=== PATIENT | female | born 1970 | race Caucasian/White ===

== ENCOUNTER 2017-02-11 10:53 | Emergency (ER) | payer SELFPAY ==
[~2017-02-11] VITALS: Ht 160 cm; Wt 91.0 kg
[~2017-02-11 10:53] MED LIST: LISI-126 PO; METO-64 PO; QUET50TA7 PO; TOPI100T27 PO; ZOLP-109 PO
--- OUTSIDE RECORDS SUMMARY | 2017-02-11 10:57 | XMS REPORT | CCD ---
Author Author SHANNON LAIRD Organization Unknown Address [address], [place] [id number] Phone 0 Care Team Providers Care Lead Java J2Ee Developer Name Role Phone EMILEE ASHTON Attending Physician [phone] EMILEE ASHTNO Primary Surgeon [phone] Vital Signs Vital Sign Value Unit Date/Time Recent/Initial? Weight Measured 180 lbs 12/22/2016 15:33 Initial VS Height 63 in 2016 15:33 Initial VS BMI (Body Mass Index) 31.89 kg/m^2 12/22/2016 15:33 Initial VS BSA (Body Surface Area) 1.91 m^2 12/22/2016 15:33 Initial VS Allergies Allergy Code Allergy Type Reaction Status ERYTHROMYCIN 4053 Drug allergy Active Procedures Unknown or Not Available. History of Immunizations Immunization Code Date influenza, unspecified formulation 88 Pneumococcal Conjugate, unspecified formulation 152 05/03/2013 Problems Unknown or Not Available. Results Unknown or Not Available. Active Medications Medication Code Dose Units Frequency Route Modification Start Date/Time Ibuprofen 400MG Oral Tablet [id number] 400 MILLIGRAMS PRN Q6H BY MOUTH 07/14/2015 11:34 Prescription Detail TAKE 400 MILLIGRAMS BY MOUTH PRN Q6H Propranolol ER 80MG Oral Capsule, Extended Release [id number] 80 MILLIGRAMS TWICE A DAY ORAL 07/14/2015 11:33 Prescription Detail 80 MILLIGRAMS ORAL TWICE A DAY QUEtiapine Fumarate 200MG Oral Tablet [id number] 200 MILLIGRAMS TWICE A DAY ORAL 07/14/2015 11:33 Prescription Detail 200 MILLIGRAMS ORAL TWICE A DAY Requip 1MG Oral Tablet [id number] 1 MILLIGRAMS AT BEDTIME ORAL 07/14/2015 11:33 Prescription Detail 1 MILLIGRAMS ORAL AT BEDTIME Medications Administered During Visit Unknown or Not Available. Encounters Unknown or Not Available. Social History Smoking Status Code Start Date End Date Never smoker [id number] Patient Decision Aids Unknown or Not Available. Discharge Instructions You were admitted to [facility] on 12/22/2016 15:22 You were discharged from [facility] on 12/22/2016 16:33 Should you have any questions prior to discharge, please contact a member of your healthcare team. If you have left the hospital and have any questions, please contact your primary care physician. Chief Complaint and Reason For Visit Chief Complaint Date of Onset VOMITING Function Status Unknown or Not Available. Plan of Care Unknown or Not Available. Referral/Transition of Care Unknown or Not Available.
--- OUTSIDE RECORDS SUMMARY | 2017-02-11 10:57 | XMS REPORT | CCD ---
Author Author SHANNON LAIRD Organization Unknown Address [address], [place] [id number] Phone 0 Care Team Providers Care Open Soaper Tender Name Role Phone NEW, Andrew Attending Physician 0 NEW, A Primary Surgeon 0 Vital Signs Vital Sign Value Unit Date/Time Recent/Initial? Weight Measured 180 lbs 12/19/2015 01:19 Initial VS Height 63 in 2015 01:19 Initial VS BMI (Body Mass Index) 31.89 kg/m^2 12/19/2015 01:19 Initial VS BSA (Body Surface Area) 1.91 m^2 12/19/2015 01:19 Initial VS Allergies Allergy Code Allergy Type Reaction Status ERYTHROMYCIN 4053 Drug allergy Active Procedures Unknown or Not Available. History of Immunizations Immunization Code Date influenza, unspecified formulation 88 Pneumococcal Conjugate, unspecified formulation 152 05/03/2013 Problems Unknown or Not Available. Results Unknown or Not Available. Active Medications Medication Code Dose Units Frequency Route Modification Start Date/Time Ibuprofen 400MG Oral Tablet [id number] 400 MILLIGRAMS PRN Q6H BY MOUTH 07/14/2015 11:34 Prescription Detail TAKE 400 MILLIGRAMS BY MOUTH PRN Q6H Propranolol ER 80MG Oral Capsule, Extended Release [id number] 80 MILLIGRAMS TWICE A DAY ORAL 07/14/2015 11:33 Prescription Detail 80 MILLIGRAMS ORAL TWICE A DAY QUEtiapine Fumarate 200MG Oral Tablet [id number] 200 MILLIGRAMS TWICE A DAY ORAL 07/14/2015 11:33 Prescription Detail 200 MILLIGRAMS ORAL TWICE A DAY Remeron 15MG Oral Tablet [id number] 15 MILLIGRAMS AT BEDTIME ORAL 07/14/2015 11:33 Prescription Detail 15 MILLIGRAMS ORAL AT BEDTIME Requip 1MG Oral Tablet [id number] 1 MILLIGRAMS AT BEDTIME ORAL 07/14/2015 11:33 Prescription Detail 1 MILLIGRAMS ORAL AT BEDTIME Xanax 1MG Oral Tablet [id number] 1 MILLIGRAMS THREE TIMES DAILY ORAL 07/14/2015 11:33 Prescription Detail 1 MILLIGRAMS ORAL THREE TIMES DAILY Medications Administered During Visit Unknown or Not Available. Encounters Encounter Diagnosis Diagnosis Code Start Date Lumbago with sciatica, right side M5441 12/19/2015 Social History Smoking Status Code Start Date End Date Never smoker [id number] Patient Decision Aids Unknown or Not Available. Discharge Instructions You were admitted to [facility] on 12/19/2015 with a principal diagnosis of Lumbago with sciatica, right side. You were discharged from [facility] on 12/19/2015. Should you have any questions prior to discharge, please contact a member of your healthcare team. If you have left the hospital and have any questions, please contact your primary care physician. Chief Complaint and Reason For Visit Chief Complaint Date of Onset LEFT LEG PAIN 12/18/2015 Function Status Unknown or Not Available. Plan of Care Unknown or Not Available. Referral/Transition of Care Unknown or Not Available.
--- OUTSIDE RECORDS SUMMARY | 2017-02-11 10:57 | XMS REPORT | Continuity of Care Document ---
Author Author [facility] Address Unknown Phone Unavailable Allergies Medications Problems Procedures Results Encounters ACCT No. Visit Date/Time Discharge Status Pt. Type Provider Facility Loc./Unit Complaint [id number] 01/28/2014 07:25:00 2013 23:59:59 [facility] Outpatient [id number] 09/25/2013 11:05:00 2012 23:59:59 CLS Outpatient
--- OUTSIDE RECORDS SUMMARY | 2017-02-11 10:57 | XMS REPORT | CCD ---
Author Author SHANNON LAIRD Organization Unknown Address [address] [place], [place] [address] Phone 0 Care Team Providers Care Robotics Testing Technician Name Role Phone MAUDE GONZALEZ Attending Physician 0 Vital Signs Unknown or Not Available. Allergies Allergy Code Allergy Type Reaction Status ERYTHROMYCIN 4053 Drug allergy Active Procedures Unknown or Not Available. History of Immunizations Immunization Code Date influenza, unspecified formulation 88 Pneumococcal Conjugate, unspecified formulation 152 05/03/2013 Problems Unknown or Not Available. Results BASIC METABOLIC - Collect Date/Time: 08/11/2015 08:00 Test Name Code Test Result Test Units Test Ref Range GLUCOSE 115 mg/dL L=70 H=110 BUN 9 mg/dL L=7 H=18 CREATININE 0.60 mg/ dL L=0.60 H=1.30 AGE 44 YEARS GFR 115.4 SODIUM 140 mmol/L L=136 H=145 POTASSIUM 3.4 mmol/ L L=3.5 H=5.1 CHLORIDE 103 mmol/L L=98 H=107 CO2 27 mmol/L L=21 H=32 CALCIUM 9.5 mg/dL L=8.5 H=10.1 CBC W/ DIFF - Collect Date/Time: 08/11/2015 08:00 Test Name Code Test Result Test Units Test Ref Range WBC 7.5 x10^3 L=4.8 H=10.8 RBC 4.58 x10^6 L=4.20 H=5.40 HEMOGLOBIN 12.9 g/ dL L=12.0 H=16.0 HEMATOCRIT 39.3 % L=37.0 H=47.0 MCV 86 fL L=80 H=100 MCH 28.2 pg L=27.0 H=33.0 MCHC 32.9 g/dL L=33.0 H=37.0 RDW 15.4 % L=11.5 H=14.5 PLATELETS 269 x10^3 L=150 H=450 MPV 7.5 fL L=7.8 H=11.0 NEUTROPHILS 68.2 % L=40.0 H=80.0 LYMPHOCYTES 24.9 % L=20.0 H=45.0 MONOCYTES 4.3 % L=0.0 H=10.0 EOSINOPHILS 2.6 % L=0.0 H=5.0 BASOPHILS 0.0 % L=0.0 H=2.0 REFLEX MAN DIFF NO N /A UA AUTO W/ MICRO - Collect Date/Time: 08/11/2015 08:04 Test Name Code Test Result Test Units Test Ref Range COLOR Yellow N/A NORMAL: Yellow APPEARANCE Clear N/ A NORMAL: Clear GLUCOSE Negative N/ A NORMAL: Negative BILIRUBIN Negative N /A NORMAL: Negative KETONE Negative N/A NORMAL: Negative SPEC GRAVITY 1.015 N /A NORMAL: 1.005-1.030 BLOOD Small N/A NORMAL: Negative PROTEIN Trace N/A NORMAL: Negative PH 5.5 N/A NORMAL: 5.0-8.0 UROBILINOGEN 0.2 N/ A NORMAL: Negative NITRITE Negative N/ A NORMAL: Negative LEUKOCYTES Negative N/A NORMAL: Negative MICRO RBC 0-2 N/A NORMAL: 0-2 MICRO WBC 0-2 N/A NORMAL: 0-2 BACTERIA Trace N/A NORMAL: None-Trace EPI CELLS 0-5 N/A NORMAL: 0-15 MUCUS Large N/A NORMAL: None-Small AMORPHOUS None Seen N/A NORMAL: None Seen YEAST Trace N/A NORMAL: None Seen CRYSTALS None Seen N /A NORMAL: None Seen CAST None Seen N/A NORMAL: None Seen URINE CULTURE? NO N/ A Active Medications Medication Code Dose Units Frequency Route Modification Start Date/Time Ibuprofen 400MG Oral Tablet [id number] 400 MILLIGRAMS PRN Q6H BY MOUTH 07/14/2015 11:34 Prescription Detail TAKE 400 MILLIGRAMS BY MOUTH PRN Q6H Propranolol ER 80MG Oral Capsule, Extended Release [id number] 80 MILLIGRAMS TWICE A DAY ORAL 07/14/2015 11:33 Prescription Detail 80 MILLIGRAMS ORAL TWICE A DAY QUEtiapine Fumarate 200MG Oral Tablet [id number] 200 MILLIGRAMS TWICE A DAY ORAL 07/14/2015 11:33 Prescription Detail 200 MILLIGRAMS ORAL TWICE A DAY Remeron 15MG Oral Tablet [id number] 15 MILLIGRAMS AT BEDTIME ORAL 07/14/2015 11:33 Prescription Detail 15 MILLIGRAMS ORAL AT BEDTIME Requip 1MG Oral Tablet [id number] 1 MILLIGRAMS AT BEDTIME ORAL 07/14/2015 11:33 Prescription Detail 1 MILLIGRAMS ORAL AT BEDTIME Xanax 1MG Oral Tablet [id number] 1 MILLIGRAMS THREE TIMES DAILY ORAL 07/14/2015 11:33 Prescription Detail 1 MILLIGRAMS ORAL THREE TIMES DAILY Medications Administered During Visit Unknown or Not Available. Encounters Encounter Diagnosis Diagnosis Code Start Date Sepsis due to unspecified staphylococcus A412 08/11/2015 Social History Smoking Status Code Start Date End Date Never smoker [id number] Patient Decision Aids Unknown or Not Available. Discharge Instructions You were admitted to [facility] on 08/11/2015 with a principal diagnosis of Sepsis due to unspecified staphylococcus. You were discharged from [facility] on 08/11/2015. Should you have any questions prior to discharge, please contact a member of your healthcare team. If you have left the hospital and have any questions, please contact your primary care physician. Chief Complaint and Reason For Visit Unknown or Not Available. Function Status Unknown or Not Available. Plan of Care Unknown or Not Available. Referral/Transition of Care Unknown or Not Available.
--- OUTSIDE RECORDS SUMMARY | 2017-02-11 10:57 | XMS REPORT | CCD ---
Author Author SHANNON LAIRD Organization Unknown Address [address] [place], [place] [id number] Phone 0 Care Team Providers Care Container Washer Name Role Phone MAUDE GONZALEZ Attending Physician 0 Vital Signs Unknown or Not Available. Allergies Allergy Code Allergy Type Reaction Status ERYTHROMYCIN 4053 Drug allergy Active Procedures Unknown or Not Available. History of Immunizations Immunization Code Date influenza, unspecified formulation 88 Pneumococcal Conjugate, unspecified formulation 152 05/03/2013 Problems Unknown or Not Available. Results COMP METABOLIC - Collect Date/Time: 07/18/2015 13:47 Test Name Code Test Result Test Units Test Ref Range GLUCOSE 100 mg/dL L=70 H=110 BUN 8 mg/dL L=7 H=18 CREATININE 0.60 mg/ dL L=0.60 H=1.30 AGE 44 YEARS GFR 115.4 SODIUM 138 mmol/L L=136 H=145 POTASSIUM 3.9 mmol/ L L=3.5 H=5.1 CHLORIDE 101 mmol/L L=98 H=107 CO2 26 mmol/L L=21 H=32 CALCIUM 9.6 mg/dL L=8.5 H=10.1 AST 16 U/L L=15 H=37 ALT 40 U/L L=12 H=78 ALKALINE PHOS 134 U/ L L=50 H=136 TOTAL PROTEIN 7.9 g/ dL L=6.4 H=8.2 ALBUMIN 3.5 g/dL L=3.4 H=5.0 TOTAL BILI 0.30 mg/ dL L=0.00 H=1.00 CBC W/ DIFF - Collect Date/Time: 07/18/2015 13:47 Test Name Code Test Result Test Units Test Ref Range WBC 8.3 x10^3 L=4.8 H=10.8 RBC 4.46 x10^6 L=4.20 H=5.40 HEMOGLOBIN 12.4 g/ dL L=12.0 H=16.0 HEMATOCRIT 37.6 % L=37.0 H=47.0 MCV 84 fL L=80 H=100 MCH 27.8 pg L=27.0 H=33.0 MCHC 33.0 g/dL L=33.0 H=37.0 RDW 14.5 % L=11.5 H=14.5 PLATELETS 316 x10^3 L=150 H=450 MPV 8.0 fL L=7.8 H=11.0 NEUTROPHILS 64.1 % L=40.0 H=80.0 LYMPHOCYTES 25.6 % L=20.0 H=45.0 MONOCYTES 6.4 % L=0.0 H=10.0 EOSINOPHILS 3.6 % L=0.0 H=5.0 BASOPHILS 0.3 % L=0.0 H=2.0 REFLEX MAN DIFF NO N /A UA AUTO W/ MICRO - Collect Date/Time: 07/18/2015 13:47 Test Name Code Test Result Test Units Test Ref Range COLOR Yellow N/A NORMAL: Yellow APPEARANCE Clear N/ A NORMAL: Clear GLUCOSE Negative N/ A NORMAL: Negative BILIRUBIN Negative N /A NORMAL: Negative KETONE Negative N/A NORMAL: Negative SPEC GRAVITY 1.015 N /A NORMAL: 1.005-1.030 BLOOD Small N/A NORMAL: Negative PROTEIN Negative N/ A NORMAL: Negative PH 6.0 N/A NORMAL: 5.0-8.0 UROBILINOGEN 0.2 N/ A NORMAL: Negative NITRITE Negative N/ A NORMAL: Negative LEUKOCYTES Negative N/A NORMAL: Negative MICRO RBC 0-2 N/A NORMAL: 0-2 MICRO WBC 0-2 N/A NORMAL: 0-2 BACTERIA Trace N/A NORMAL: None-Trace EPI CELLS 0-5 N/A NORMAL: 0-15 MUCUS Small N/A NORMAL: None-Small AMORPHOUS None Seen N/A NORMAL: None Seen YEAST None Seen N/A NORMAL: None Seen CRYSTALS None Seen N /A NORMAL: None Seen CAST None Seen N/A NORMAL: None Seen URINE CULTURE? NO N/ A Active Medications Medication Code Dose Units Frequency Route Modification Start Date/Time Ibuprofen 400MG Oral Tablet [id number] 400 MILLIGRAMS PRN Q6H BY MOUTH 07/14/2015 11:34 Prescription Detail TAKE 400 MILLIGRAMS BY MOUTH PRN Q6H Propranolol ER 80MG Oral Capsule, Extended Release [id number] 80 MILLIGRAMS TWICE A DAY ORAL 07/14/2015 11:33 Prescription Detail 80 MILLIGRAMS ORAL TWICE A DAY QUEtiapine Fumarate 200MG Oral Tablet [id number] 200 MILLIGRAMS TWICE A DAY ORAL 07/14/2015 11:33 Prescription Detail 200 MILLIGRAMS ORAL TWICE A DAY Remeron 15MG Oral Tablet [id number] 15 MILLIGRAMS AT BEDTIME ORAL 07/14/2015 11:33 Prescription Detail 15 MILLIGRAMS ORAL AT BEDTIME Requip 1MG Oral Tablet [id number] 1 MILLIGRAMS AT BEDTIME ORAL 07/14/2015 11:33 Prescription Detail 1 MILLIGRAMS ORAL AT BEDTIME Xanax 1MG Oral Tablet [id number] 1 MILLIGRAMS THREE TIMES DAILY ORAL 07/14/2015 11:33 Prescription Detail 1 MILLIGRAMS ORAL THREE TIMES DAILY Medications Administered During Visit Unknown or Not Available. Encounters Encounter Diagnosis Diagnosis Code Start Date URIN TRACT INFECTION NOS 5990 07/18/2015 Social History Smoking Status Code Start Date End Date Never smoker [id number] Patient Decision Aids Unknown or Not Available. Discharge Instructions You were admitted to [facility] on 07/18/2015 with a principal diagnosis of URIN TRACT INFECTION NOS. You were discharged from [facility] on 07/18/2015. Should you have any questions prior to [...]
--- OUTSIDE RECORDS SUMMARY | 2017-02-11 10:57 | XMS REPORT | CCD ---
Author Author SHANNON LAIRD Organization Unknown Address [address], [place] [address] Phone 0 Care Team Providers Care Opener Tender Name Role Phone NEW, A Attending Physician 0 NEW, A Primary Surgeon 0 Vital Signs Unknown or Not Available. Allergies Allergy Code Allergy Type Reaction Status ERYTHROMYCIN 4053 Drug allergy Active Procedures Unknown or Not Available. History of Immunizations Immunization Code Date influenza, unspecified formulation 88 Pneumococcal Conjugate, unspecified formulation 152 05/03/2013 Problems Unknown or Not Available. Results UA AUTO W/ MICRO - Collect Date/Time: 12/24/2015 10:10 Test Name Code Test Result Test Units Test Ref Range COLOR Yellow N/A NORMAL: Yellow APPEARANCE Clear N/ A NORMAL: Clear GLUCOSE Negative N/ A NORMAL: Negative BILIRUBIN Negative N /A NORMAL: Negative KETONE Negative N/A NORMAL: Negative SPEC GRAVITY <=1.005 N/A NORMAL: 1.005-1.030 BLOOD Small N/A NORMAL: Negative PROTEIN Negative N/ A NORMAL: Negative PH 6.0 N/A NORMAL: 5.0-8.0 UROBILINOGEN 0.2 N/ A NORMAL: Negative NITRITE Negative N/ A NORMAL: Negative LEUKOCYTES Negative N/A NORMAL: Negative MICRO RBC 0-2 N/A NORMAL: 0-2 MICRO WBC 0-2 N/A NORMAL: 0-2 BACTERIA Trace N/A NORMAL: None-Trace EPI CELLS 0-5 N/A NORMAL: 0-15 MUCUS None Seen N/A NORMAL: None-Small AMORPHOUS None Seen N/A NORMAL: None Seen YEAST None Seen N/A NORMAL: None Seen CRYSTALS None Seen N /A NORMAL: None Seen CAST None Seen N/A NORMAL: None Seen URINE CULTURE? NO N/ A Active Medications Unknown or Not Available. Medications Administered During Visit Unknown or Not Available. Encounters Encounter Diagnosis Diagnosis Code Start Date Urinary tract infection, site not specified N390 12/24/2015 Social History Smoking Status Code Start Date End Date Never smoker [id number] Patient Decision Aids Unknown or Not Available. Discharge Instructions You were admitted to [facility] on 12/24/2015 09:17 with a principal diagnosis of Urinary tract infection, site not specified You had the following tests done: UA AUTO W/ MICRO You were discharged from [facility] on 12/24/2015 10:45 Should you have any questions prior to discharge, please contact a member of your healthcare team. If you have left the hospital and have any questions, please contact your primary care physician. Chief Complaint and Reason For Visit Chief Complaint Date of Onset ABD/BACK PAIN Function Status Unknown or Not Available. Plan of Care Unknown or Not Available. Referral/Transition of Care Unknown or Not Available.
--- OUTSIDE RECORDS SUMMARY | 2017-02-11 10:58 | XMS REPORT | CCD ---
Author Author SHANNON LAIRD Organization Unknown Address [address] [place], [place] [id number] Phone 0 Care Team Providers Care Outsole Handler Name Role Phone MAUDE GONZALEZ Attending Physician 0 MAUDE GONZALEZ Primary Surgeon 0 Vital Signs Unknown or [...] Modification Start Date/Time Ibuprofen 400MG Oral Tablet [id number] 400 MILLIGRAMS PRN Q6H BY MOUTH 07/14/2015 11:34 Prescription Detail TAKE 400 MILLIGRAMS BY MOUTH PRN Q6H Propranolol ER 80MG Oral Capsule, Extended Release [id number] 80 MILLIGRAMS TWICE A DAY ORAL 07/14/2015 11:33 Prescription Detail 80 MILLIGRAMS ORAL TWICE A DAY QUEtiapine Fumarate 200MG Oral Tablet [id number] 200 MILLIGRAMS TWICE A DAY ORAL 07/14/2015 11:33 Prescription Detail 200 MILLIGRAMS ORAL TWICE A DAY Remeron 15MG Oral Tablet [id number] 15 MILLIGRAMS AT BEDTIME ORAL 07/14/2015 11:33 Prescription Detail 15 MILLIGRAMS ORAL AT BEDTIME Requip 1MG Oral Tablet [id number] 1 MILLIGRAMS AT BEDTIME ORAL 07/14/2015 11:33 Prescription Detail 1 MILLIGRAMS ORAL AT BEDTIME Xanax 1MG Oral Tablet [id number] 1 MILLIGRAMS THREE TIMES DAILY ORAL 07/14/2015 11:33 Prescription Detail 1 MILLIGRAMS ORAL THREE TIMES DAILY Medications Administered During Visit Unknown or Not Available. Encounters Encounter Diagnosis Diagnosis Code Start Date Sprain of medial collateral ligament of right knee, initial encounter [id number] 11/23/2015 Social History Smoking Status Code Start Date End Date Never smoker [id number] Patient Decision Aids Unknown or Not Available. Discharge Instructions You were admitted to [facility] on 11/23/2015 with a principal diagnosis of Sprain of medial collateral ligament of right knee, initial encounter. You were discharged from [facility] on 11/23/2015. Should you have any questions prior to discharge, please contact a member of your healthcare team. If you have left the hospital and have any questions, please contact your primary care physician. Chief Complaint and Reason For Visit Chief Complaint Date of Onset FALL, BILAT KNEE PAIN 11/23/2015 Function Status Unknown or Not Available. Plan of Care Unknown or Not Available. Referral/Transition of Care Unknown or Not Available.
--- OUTSIDE RECORDS SUMMARY | 2017-02-11 10:58 | XMS REPORT | CCD ---
Author Author SHANNON LAIRD Organization Unknown Address [address] [place], [place] [address] Phone 0 Care Team Providers Care Loom Changeover Operator Name Role Phone MAUDE GONZALEZ Attending Physician 0 Vital Signs Unknown or Not Available. Allergies Allergy Code Allergy Type Reaction Status ERYTHROMYCIN 4053 Drug allergy Active Procedures Unknown or Not Available. History of Immunizations Immunization Code Date influenza, unspecified formulation 88 Pneumococcal Conjugate, unspecified formulation 152 05/03/2013 Problems Unknown or Not Available. Results BASIC METABOLIC - Collect Date/Time: 08/12/2015 13:49 Test Name Code Test Result Test Units Test Ref Range GLUCOSE 124 mg/dL L=70 H=110 BUN 9 mg/dL L=7 H=18 CREATININE 0.60 mg/ dL L=0.60 H=1.30 AGE 44 YEARS GFR 115.4 SODIUM 141 mmol/L L=136 H=145 POTASSIUM 3.3 mmol/ L L=3.5 H=5.1 CHLORIDE 104 mmol/L L=98 H=107 CO2 31 mmol/L L=21 H=32 CALCIUM 9.5 mg/dL L=8.5 H=10.1 CBC W/ DIFF - Collect Date/Time: 08/12/2015 13:49 Test Name Code Test Result Test Units Test Ref Range WBC 10.0 x10^3 L=4.8 H=10.8 RBC 4.31 x10^6 L=4.20 H=5.40 HEMOGLOBIN 12.5 g/ dL L=12.0 H=16.0 HEMATOCRIT 37.1 % L=37.0 H=47.0 MCV 86 fL L=80 H=100 MCH 29.0 pg L=27.0 H=33.0 MCHC 33.7 g/dL L=33.0 H=37.0 RDW 15.2 % L=11.5 H=14.5 PLATELETS 279 x10^3 L=150 H=450 MPV 7.8 fL L=7.8 H=11.0 NEUTROPHILS 68.5 % L=40.0 H=80.0 LYMPHOCYTES 22.0 % L=20.0 H=45.0 MONOCYTES 5.0 % L=0.0 H=10.0 EOSINOPHILS 2.9 % L=0.0 H=5.0 BASOPHILS 1.6 % L=0.0 H=2.0 REFLEX MAN DIFF NO N /A Active Medications Medication Code Dose Units Frequency Route Modification Start Date/Time Ibuprofen 400MG Oral Tablet [id number] 400 MILLIGRAMS PRN Q6H BY MOUTH 07/14/2015 11:34 Prescription Detail TAKE 400 MILLIGRAMS BY MOUTH PRN Q6H Propranolol ER 80MG Oral Capsule, Extended Release [id number] 80 MILLIGRAMS TWICE A DAY ORAL 07/14/2015 11:33 Prescription Detail 80 MILLIGRAMS ORAL TWICE A DAY QUEtiapine Fumarate 200MG Oral Tablet [id number] 200 MILLIGRAMS TWICE A DAY ORAL 07/14/2015 11:33 Prescription Detail 200 MILLIGRAMS ORAL TWICE A DAY Remeron 15MG Oral Tablet [id number] 15 MILLIGRAMS AT BEDTIME ORAL 07/14/2015 11:33 Prescription Detail 15 MILLIGRAMS ORAL AT BEDTIME Requip 1MG Oral Tablet [id number] 1 MILLIGRAMS AT BEDTIME ORAL 07/14/2015 11:33 Prescription Detail 1 MILLIGRAMS ORAL AT BEDTIME Xanax 1MG Oral Tablet [id number] 1 MILLIGRAMS THREE TIMES DAILY ORAL 07/14/2015 11:33 Prescription Detail 1 MILLIGRAMS ORAL THREE TIMES DAILY Medications Administered During Visit Unknown or Not Available. Encounters Encounter Diagnosis Diagnosis Code Start Date Sepsis due to unspecified staphylococcus A412 08/12/2015 Social History Smoking Status Code Start Date End Date Never smoker [id number] Patient Decision Aids Unknown or Not Available. Discharge Instructions You were admitted to [facility] on 08/12/2015 with a principal diagnosis of Sepsis due to unspecified staphylococcus. You were discharged from [facility] on 08/12/2015. Should you have any questions prior to [...]
--- OUTSIDE RECORDS SUMMARY | 2017-02-11 10:58 | XMS REPORT | CCD ---
Author Author SHANNON LAIRD Organization Unknown Address [address] [place], [place] [id number] Phone 0 Care Team Providers Care Subscription Crew Leader Name Role Phone NINO CAO Attending Physician 0 Vital Signs Unknown or [...] Modification Start Date/Time Ibuprofen 400MG Oral Tablet [id number] 400 MILLIGRAMS PRN Q6H BY MOUTH 07/14/2015 11:34 Prescription Detail TAKE 400 MILLIGRAMS BY MOUTH PRN Q6H Propranolol ER 80MG Oral Capsule, Extended Release [id number] 80 MILLIGRAMS TWICE A DAY ORAL 07/14/2015 11:33 Prescription Detail 80 MILLIGRAMS ORAL TWICE A DAY QUEtiapine Fumarate 200MG Oral Tablet [id number] 200 MILLIGRAMS TWICE A DAY ORAL 07/14/2015 11:33 Prescription Detail 200 MILLIGRAMS ORAL TWICE A DAY Remeron 15MG Oral Tablet [id number] 15 MILLIGRAMS AT BEDTIME ORAL 07/14/2015 11:33 Prescription Detail 15 MILLIGRAMS ORAL AT BEDTIME Requip 1MG Oral Tablet [id number] 1 MILLIGRAMS AT BEDTIME ORAL 07/14/2015 11:33 Prescription Detail 1 MILLIGRAMS ORAL AT BEDTIME Xanax 1MG Oral Tablet [id number] 1 MILLIGRAMS THREE TIMES DAILY ORAL 07/14/2015 11:33 Prescription Detail 1 MILLIGRAMS ORAL THREE TIMES DAILY Medications Administered During Visit Unknown or Not Available. Encounters Encounter Diagnosis Diagnosis Code Start Date Migraine, unspecified, intractable, without status migrainosus [id number] 01/20/2016 Social History Smoking Status Code Start Date End Date Never smoker [id number] Patient Decision Aids Unknown or Not Available. Discharge Instructions You were admitted to [facility] on 01/20/2016 10:16 with a principal diagnosis of Migraine, unsp, intractable, without status migrainosus You were discharged from [facility] on 01/20/2016 10:16 Should you have any questions prior to discharge, please contact a member of your healthcare team. If you have left the hospital and have any questions, please contact your primary care physician. Chief Complaint and Reason For Visit Chief Complaint Date of Onset CT HEAD Function Status Unknown or Not Available. Plan of Care Unknown or Not Available. Referral/Transition of Care Unknown or Not Available.
--- OUTSIDE RECORDS SUMMARY | 2017-02-11 10:58 | XMS REPORT | CCD ---
Author Author SHANNON LAIRD Organization Unknown Address [address] [place], [place] [id number] Phone 0 Care Team Providers Care Printed Circuit Boards Solder Leveler Name Role Phone DARI CLAYTON, W Attending Physician [phone] DARI CLAYTON W Primary Surgeon [phone] QASIM Martinez Nurse Assisstant 0 Vital Signs Vital Sign Value Unit Date/Time Recent/Initial? Weight Measured 203.8 lbs 02/25/2016 09:16 Initial VS Height 63 in 2015 09:16 Initial VS BMI (Body Mass Index) 36.1 kg/m^2 02/25/2016 09:16 Initial VS BSA (Body Surface Area) 2.03 m^2 02/25/2016 09:16 Initial VS Allergies Allergy Code Allergy Type Reaction Status ERYTHROMYCIN 4053 Drug allergy Active Procedures Unknown or Not Available. History of Immunizations Immunization Code Date influenza, unspecified formulation 88 Pneumococcal Conjugate, unspecified formulation 152 05/03/2013 Problems Unknown or Not Available. Results Unknown or Not Available. Active Medications Unknown or Not Available. Medications Administered During Visit Unknown or Not Available. Encounters Encounter Diagnosis Diagnosis Code Start Date Migraine, unspecified, not intractable, without status migrainosus [id number] 02/25/2016 Social History Smoking Status Code Start Date End Date Never smoker [id number] Patient Decision Aids Unknown or Not Available. Discharge Instructions You were admitted to [facility] on 02/25/2016 08:59 with a principal diagnosis of Migraine, unsp, not intractable, without status migrain You were discharged from [facility] on 02/25/2016 09:35 Should you have any questions prior to discharge, please contact a member of your healthcare team. If you have left the hospital and have any questions, please contact your primary care physician. Chief Complaint and Reason For Visit Chief Complaint Date of Onset MIGRAINE Function Status Unknown or Not Available. Plan of Care Unknown or Not Available. Referral/Transition of Care Unknown or Not Available.
--- OUTSIDE RECORDS SUMMARY | 2017-02-11 10:58 | XMS REPORT | CCD ---
Author Author SHANNON LAIRD Organization Unknown Address [address] [place], [place] [id number] Phone 0 Care Team Providers Care Car Builder Name Role Phone MAUDE GONZALEZ Attending Physician 0 Vital Signs Unknown or Not Available. Allergies Allergy Code Allergy Type Reaction Status ERYTHROMYCIN 4053 Drug allergy Active Procedures Unknown or Not Available. History of Immunizations Immunization Code Date influenza, unspecified formulation 88 Pneumococcal Conjugate, unspecified formulation 152 05/03/2013 Problems Unknown or Not Available. Results BASIC METABOLIC - Collect Date/Time: 08/08/2015 16:00 Test Name Code Test Result Test Units Test Ref Range GLUCOSE 109 mg/dL L=70 H=110 BUN 11 mg/dL L=7 H=18 CREATININE 0.60 mg/ dL L=0.60 H=1.30 AGE 44 YEARS GFR 115.4 SODIUM 138 mmol/L L=136 H=145 POTASSIUM 3.0 mmol/ L L=3.5 H=5.1 CHLORIDE 103 mmol/L L=98 H=107 CO2 28 mmol/L L=21 H=32 CALCIUM 9.1 mg/dL L=8.5 H=10.1 CBC W/ DIFF - Collect Date/Time: 08/08/2015 16:00 Test Name Code Test Result Test Units Test Ref Range WBC 8.6 x10^3 L=4.8 H=10.8 RBC 4.18 x10^6 L=4.20 H=5.40 HEMOGLOBIN 12.1 g/ dL L=12.0 H=16.0 HEMATOCRIT 36.1 % L=37.0 H=47.0 MCV 86 fL L=80 H=100 MCH 28.9 pg L=27.0 H=33.0 MCHC 33.5 g/dL L=33.0 H=37.0 RDW 15.4 % L=11.5 H=14.5 PLATELETS 281 x10^3 L=150 H=450 MPV 8.2 fL L=7.8 H=11.0 NEUTROPHILS 68.9 % L=40.0 H=80.0 LYMPHOCYTES 23.0 % L=20.0 H=45.0 MONOCYTES 4.3 % L=0.0 H=10.0 EOSINOPHILS 3.1 % L=0.0 H=5.0 BASOPHILS 0.7 % L=0.0 H=2.0 REFLEX MAN DIFF NO N /A UA AUTO W/ MICRO - Collect Date/Time: 08/08/2015 16:20 Test Name Code Test Result Test Units [...] RBC 0-2 N/A NORMAL: 0-2 MICRO WBC None Seen N/A NORMAL: 0-2 BACTERIA None Seen N /A NORMAL: None-Trace EPI CELLS 0-5 N/A NORMAL: 0-15 MUCUS None Seen N/A NORMAL: None-Small AMORPHOUS None Seen N/A NORMAL: None Seen YEAST None Seen N/A NORMAL: None Seen CRYSTALS None Seen N /A NORMAL: None Seen CAST None Seen N/A NORMAL: None Seen URINE CULTURE? NO N/ A CULTURE BLOOD - Collect Date/Time: 08/08/2015 16:15 Test Name Code Test Result Test Units Test Ref Range SOURCE: RIGHT FOREARM N/A Blood Culture, Routine 600-7 Final report N/A Blood Culture, Routine 600-7 Final report N/A CULTURE BLOOD - Collect Date/Time: 08/08/2015 16:00 Test Name Code Test Result Test Units Test Ref Range SOURCE: LEFT FOREARM N/A Blood Culture, Routine 600-7 Final report N/A Active Medications Medication Code Dose Units Frequency Route Modification Start Date/Time Ibuprofen 400MG Oral Tablet [id number] 400 MILLIGRAMS PRN Q6H BY MOUTH 07/14/2015 11:34 Prescription Detail TAKE 400 MILLIGRAMS BY MOUTH PRN Q6H Propranolol ER 80MG Oral Capsule, Extended Release [id number] 80 MILLIGRAMS TWICE A DAY ORAL 07/14/2015 11:33 Prescription Detail 80 MILLIGRAMS ORAL TWICE A DAY QUEtiapine Fumarate 200MG Oral Tablet [id number] 200 MILLIGRAMS TWICE A DAY ORAL 07/14/2015 11:33 Prescription Detail 200 MILLIGRAMS ORAL TWICE A DAY Remeron 15MG Oral Tablet [id number] 15 MILLIGRAMS AT BEDTIME ORAL 07/14/2015 11:33 Prescription Detail 15 MILLIGRAMS ORAL AT BEDTIME Requip 1MG Oral Tablet [id number] 1 MILLIGRAMS AT BEDTIME ORAL 07/14/2015 11:33 Prescription Detail 1 MILLIGRAMS ORAL AT BEDTIME Xanax 1MG Oral Tablet [id number] 1 MILLIGRAMS THREE TIMES DAILY ORAL 07/14/2015 11:33 Prescription Detail 1 MILLIGRAMS ORAL THREE TIMES DAILY Medications Administered During Visit Unknown or Not Available. Encounters Encounter Diagnosis Diagnosis Code Start Date Fever, unspecified R509 08/08/2015 Social History Smoking Status Code Start Date End Date Never smoker [id number] Patient Decision Aids Unknown or Not Available. Discharge Instructions You were admitted to [facility] on 08/08/2015 with a principal diagnosis of Fever, unspecified. You had the following tests done: SOURCE: Blood Culture, Routine SOURCE : Blood Culture, Routine Blood Culture , Routine You were discharged from [facility] on 08/08/2015. Should you have any questions prior to discharge, please contact a member of your healthcare team. If you have left the hospital and have any questions, please contact your primary care physician. Chief Complaint and Reason For Visit Chief Complaint Date of Onset LAB Function Status Unknown or Not Available. Plan of Care Unknown or Not Available. Referral/Transition of Care Unknown or Not Available.
--- OUTSIDE RECORDS SUMMARY | 2017-02-11 10:58 | XMS REPORT | CCD ---
Author Author SHANNON LAIRD Organization Unknown Address [address] [place], [place] [phone] Phone 0 Care Team Providers Care Director Loan Name Role Phone Barak SOUTH Attending Physician 0 Barak SOUTH Primary Surgeon 0 Vital Signs Unknown or Not Available. Allergies Allergy Code Allergy Type Reaction Status ERYTHROMYCIN 4053 Drug allergy Active Procedures Unknown or Not Available. History of Immunizations Immunization Code Date influenza, unspecified formulation 88 Pneumococcal Conjugate, unspecified formulation 152 05/03/2013 Problems Unknown or Not Available. Results C-REACTIVE PROTEIN - Collect Date/Time: 12/19/2016 14:10 Test Name Code Test Result Test Units Test Ref Range CRP 22 mg/L L=0 H=5 COMP METABOLIC - Collect Date/Time: 12/19/2016 14:10 Test Name Code Test Result Test Units Test Ref Range GLUCOSE 119 mg/dL L=70 H=110 BUN 11 mg/dL L=7 H=18 CREATININE 0.61 mg/ dL L=0.60 H=1.30 AGE 45 YEARS GFR 106.1 L=60.0 H=120 SODIUM 142 mmol/L L=136 H=145 POTASSIUM 4.2 mmol/ L L=3.5 H=5.1 CHLORIDE 105 mmol/L L=98 H=107 CO2 29 mmol/L L=21 H=32 CALCIUM 8.5 mg/dL L=8.5 H=10.1 AST 60 U/L L=15 H=37 ALT 111 U/L L=12 H=78 ALKALINE PHOS 104 U/ L L=50 H=136 TOTAL PROTEIN 7.0 g/ dL L=6.4 H=8.2 ALBUMIN 3.1 g/dL L=3.4 H=5.0 TOTAL BILI 0.20 mg/ dL L=0.00 H=1.00 CBC W/ DIFF - Collect Date/Time: 12/19/2016 14:10 Test Name Code Test Result Test Units Test Ref Range WBC 9.8 x10^3 L=4.8 H=10.8 RBC 3.91 x10^6 L=4.20 H=5.40 HEMOGLOBIN 11.7 g/ dL L=12.0 H=16.0 HEMATOCRIT 32.8 % L=37.0 H=47.0 MCV 84 fL L=80 H=100 MCH 29.8 pg L=27.0 H=33.0 MCHC 35.5 g/dL L=33.0 H=37.0 RDW 14.4 % L=11.5 H=14.5 PLATELETS 217 x10^3 L=150 H=450 MPV 8.0 fL L=7.8 H=11.0 NEUTROPHILS 65.3 % L=40.0 H=80.0 LYMPHOCYTES 25.2 % L=20.0 H=45.0 MONOCYTES 5.3 % L=0.0 H=10.0 EOSINOPHILS 3.6 % L=0.0 H=5.0 BASOPHILS 0.6 % L=0.0 H=2.0 REFLEX MAN DIFF NO N /A SED RATE AUTO - Collect Date/Time: 12/19/2016 14:10 Test Name Code Test Result Test Units Test Ref Range SED RATE 29 mm/HR L=0 H=15 D-DIMER, QUANTITATIVE - Collect Date/Time: 12/19/2016 14:10 Test Name Code Test Result Test Units Test Ref Range D-DIMER, QUANT 387 ng/mL L=0 H=400 INFLUENZA A & B, MOLECULAR - Collect Date/Time: 12/19/2016 14:10 Test Name Code Test Result Test Units Test Ref Range INFLUENZA A NEGATIVE N/A NORMAL: NEGATIVE INFLUENZA B NEGATIVE N/A NORMAL: NEGATIVE Active Medications Medication Code Dose Units Frequency Route Modification Start Date/Time Ibuprofen 400MG Oral Tablet [id number] 400 MILLIGRAMS PRN Q6H BY MOUTH 07/14/2015 11:34 Prescription Detail TAKE 400 MILLIGRAMS BY MOUTH PRN Q6H Propranolol ER 80MG Oral Capsule, Extended Release [id number] 80 MILLIGRAMS TWICE A DAY ORAL 07/14/2015 11:33 Prescription Detail 80 MILLIGRAMS ORAL TWICE A DAY QUEtiapine Fumarate 200MG Oral Tablet [id number] 200 MILLIGRAMS TWICE A DAY ORAL 07/14/2015 11:33 Prescription Detail 200 MILLIGRAMS ORAL TWICE A DAY Requip 1MG Oral Tablet [id number] 1 MILLIGRAMS AT BEDTIME ORAL 07/14/2015 11:33 Prescription Detail 1 MILLIGRAMS ORAL AT BEDTIME Medications Administered During Visit Unknown or Not Available. Encounters Unknown or Not Available. Social History Smoking Status Code Start Date End Date Never smoker [id number] Patient Decision Aids Unknown or Not Available. Discharge Instructions You were admitted to [facility] on 12/19/2016 13:40 You had the following tests done: C- REACTIVE PROTEIN CBC W/ DIFF COMP METABOLIC D-DIMER, QUANTITATIVE INFLUENZA A & B, MOLECULAR SED RATE AUTO You were discharged from [facility] on 12/19/2016 16:23 Should you have any questions prior to discharge, please contact a member of your healthcare team. If you have left the hospital and have any questions, please contact your primary care physician. Chief Complaint and Reason For Visit Chief Complaint Date of Onset SOA Function Status Unknown or Not Available. Plan of Care Unknown or Not Available. Referral/Transition of Care Unknown or Not Available.
--- OUTSIDE RECORDS SUMMARY | 2017-02-11 10:58 | XMS REPORT | CCD ---
Author Author SHANNON LAIRD Organization Unknown Address [address] [place], [place] [phone] Phone 0 Care Team Providers Care Entertainment Musician Name Role Phone Dex LLANOS Attending Physician 0 Vital Signs Unknown or [...] Modification Start Date/Time Ibuprofen 400MG Oral Tablet [id number] 400 MILLIGRAMS PRN Q6H BY MOUTH 07/14/2015 11:34 Prescription Detail TAKE 400 MILLIGRAMS BY MOUTH PRN Q6H Propranolol ER 80MG Oral Capsule, Extended Release [id number] 80 MILLIGRAMS TWICE A DAY ORAL 07/14/2015 11:33 Prescription Detail 80 MILLIGRAMS ORAL TWICE A DAY QUEtiapine Fumarate 200MG Oral Tablet [id number] 200 MILLIGRAMS TWICE A DAY ORAL 07/14/2015 11:33 Prescription Detail 200 MILLIGRAMS ORAL TWICE A DAY Remeron 15MG Oral Tablet [id number] 15 MILLIGRAMS AT BEDTIME ORAL 07/14/2015 11:33 Prescription Detail 15 MILLIGRAMS ORAL AT BEDTIME Requip 1MG Oral Tablet [id number] 1 MILLIGRAMS AT BEDTIME ORAL 07/14/2015 11:33 Prescription Detail 1 MILLIGRAMS ORAL AT BEDTIME Xanax 1MG Oral Tablet [id number] 1 MILLIGRAMS THREE TIMES DAILY ORAL 07/14/2015 11:33 Prescription Detail 1 MILLIGRAMS ORAL THREE TIMES DAILY Medications Administered During Visit Unknown or Not Available. Encounters Encounter Diagnosis Diagnosis Code Start Date Primary generalized (osteo)arthritis M150 09/14/2016 Social History Smoking Status Code Start Date End Date Never smoker [id number] Patient Decision Aids Unknown or Not Available. Discharge Instructions You were admitted to [facility] on 09/14/2016 11:37 with a principal diagnosis of Primary generalized (osteo)arthritis You were discharged from [facility] on 09/14/2016 11:37 Should you have any questions prior to discharge, please contact a member of your healthcare team. If you have left the hospital and have any questions, please contact your primary care physician. Chief Complaint and Reason For Visit Chief Complaint Date of Onset RHEUMATOLOGY Function Status Unknown or Not Available. Plan of Care Unknown or Not Available. Referral/Transition of Care Unknown or Not Available.
--- OUTSIDE RECORDS SUMMARY | 2017-02-11 10:58 | XMS REPORT | CCD ---
Author Author JANE RICHARDSON Organization Unknown Address [address] [place], [place] [phone] Phone 0 Care Team Providers Care Activities Manager Name Role Phone ORLANDO FIGUEROA Attending Physician [phone] Vital Signs Unknown or Not Available. Allergies Allergy Code Allergy Type Reaction Status ERYTHROMYCIN 4053 Drug allergy Active Procedures Unknown or Not Available. History of Immunizations Unknown or Not Available. Problems Unknown or Not Available. Results Unknown or Not Available. Active Medications Unknown or Not Available. Medications Administered During Visit Unknown or Not Available. Encounters Encounter Diagnosis Diagnosis Code Start Date KNEE JOINT REPLACEMENT STATUS V4365 04/05 Social History Smoking Status Code Start Date End Date Never smoker [id number] Patient Decision Aids Unknown or Not Available. Discharge Instructions You were admitted to [facility] on 04/05/2015 with a principal diagnosis of KNEE JOINT REPLACEMENT STATUS. Should you have any questions prior to discharge, please contact a member of your healthcare team. If you have left the hospital and have any questions, please contact your primary care physician. Chief Complaint and Reason For Visit Chief Complaint Date of Onset PHT RECURRING Function Status Unknown or Not Available. Plan of Care Unknown or Not Available. Referral/Transition of Care Unknown or Not Available.
--- OUTSIDE RECORDS SUMMARY | 2017-02-11 10:58 | XMS REPORT | CCD ---
Author Author JANE RICHARDSON Organization Unknown Address [address] [place], [place] [phone] Phone 0 Care Team Providers Care Rn Hedis Name Role Phone AYANA MARRERO Attending Physician 0 AYANA MARRERO Primary Surgeon 0 Vital Signs Unknown or [...] Code Start Date End Date Never smoker [id number] Patient Decision Aids Unknown or Not Available. Discharge Instructions You were admitted to [facility] on 02/06/2015. You were discharged from [facility] on 02/06/2015. Should you have any questions prior to discharge, please contact a member of your healthcare team. If you have left the hospital and have any questions, please contact your primary care physician. Chief Complaint and Reason For Visit Chief Complaint Date of Onset Headache Function Status Unknown or Not Available. Plan of Care Unknown or Not Available. Referral/Transition of Care Unknown or Not Available.
--- OUTSIDE RECORDS SUMMARY | 2017-02-11 10:58 | XMS REPORT | CCD ---
Author Author SHANNON LAIRD Organization Unknown Address [address] [place], [place] [phone] Phone 0 Care Team Providers Care Marketing Designer Name Role Phone NEW, A Attending Physician [...] Encounters Encounter Diagnosis Diagnosis Code Start Date Tension-type headache, unspecified, not intractable [id number] 01/16/2016 Social History Smoking Status Code Start Date End Date Never smoker [id number] Patient Decision Aids Unknown or Not Available. Discharge Instructions You were admitted to [facility] on 01/16/2016 02:35 with a principal diagnosis of Tension-type headache, unspecified, not intractable You were discharged from [facility] on 01/16/2016 03:40 Should you have any questions prior to discharge, please contact a member of your healthcare team. If you have left the hospital and have any questions, please contact your primary care physician. Chief Complaint and Reason For Visit Chief Complaint Date of Onset Migraine 01/15/2016 Function Status Unknown or Not Available. Plan of Care Unknown or Not Available. Referral/Transition of Care Unknown or Not Available.
--- OUTSIDE RECORDS SUMMARY | 2017-02-11 10:58 | XMS REPORT | CCD ---
Author Author SHANNON LAIRD Organization Unknown Address [address], [place] [address] Phone 0 Care Team Providers Care Farebox Repairer Name Role Phone RADHA CHAU Attending Physician 0 RADHA CHAU Primary Surgeon 0 Vital Signs Unknown or [...] Encounters Encounter Diagnosis Diagnosis Code Start Date Dizziness and giddiness R42 01/02/2016 Social History Smoking Status Code Start Date End Date Never smoker [id number] Patient Decision Aids Unknown or Not Available. Discharge Instructions You were admitted to [facility] on 01/02/2016 23:09 with a principal diagnosis of Dizziness and giddiness You were discharged from [facility] on 01/03/2016 00:53 Should you have any questions prior to discharge, please contact a member of your healthcare team. If you have left the hospital and have any questions, please contact your primary care physician. Chief Complaint and Reason For Visit Chief Complaint Date of Onset HEADACHE 01/02/2016 DIZZINESS 01/02/2016 Function Status Unknown or Not Available. Plan of Care Unknown or Not Available. Referral/Transition of Care Unknown or Not Available.
--- OUTSIDE RECORDS SUMMARY | 2017-02-11 10:58 | XMS REPORT | CCD ---
Author Author JANE RICHARDSON Organization Unknown Address [address], [place] [address] Phone 0 Care Team Providers Care Housekeeper Supervisor Name Role Phone ROCAEL SCRUGGS Attending Physician [phone] ROCAEL SCRUGGS Primary Surgeon [phone] Vital Signs Unknown or Not Available. Allergies Allergy Code Allergy Type Reaction Status ERYTHROMYCIN 4053 Drug allergy Active Procedures Unknown or Not Available. History of Immunizations Unknown or Not Available. Problems Unknown or Not Available. Results Unknown or Not Available. Active Medications Unknown or Not Available. Medications Administered During Visit Unknown or Not Available. Encounters Encounter Diagnosis Diagnosis Code Start Date CONTUSION OF KNEE 33714 05/28/2015 Social History Smoking Status Code Start Date End Date Never smoker [id number] Patient Decision Aids Unknown or Not Available. Discharge Instructions You were admitted to [facility] on 05/28/2015 with a principal diagnosis of CONTUSION OF KNEE. You were discharged from [facility] on 05/28/2015. Should you have any questions prior to discharge, please contact a member of your healthcare team. If you have left the hospital and have any questions, please contact your primary care physician. Chief Complaint and Reason For Visit Chief Complaint Date of Onset R KNEE PAIN Function Status Unknown or Not Available. Plan of Care Unknown or Not Available. Referral/Transition of Care Unknown or Not Available.
--- OUTSIDE RECORDS SUMMARY | 2017-02-11 10:59 | XMS REPORT | CCD ---
Author Author SHANNON LAIRD Organization Unknown Address [address] [place], [place] [phone] Phone 0 Care Team Providers Care Pay Station Attendant Name Role Phone NINO CAO Attending Physician [...] Modification Start Date/Time Ibuprofen 400MG Oral Tablet [id number] 400 MILLIGRAMS PRN Q6H BY MOUTH 07/14/2015 11:34 Prescription Detail TAKE 400 MILLIGRAMS BY MOUTH PRN Q6H Propranolol ER 80MG Oral Capsule, Extended Release [id number] 80 MILLIGRAMS TWICE A DAY ORAL 07/14/2015 11:33 Prescription Detail 80 MILLIGRAMS ORAL TWICE A DAY QUEtiapine Fumarate 200MG Oral Tablet [id number] 200 MILLIGRAMS TWICE A DAY ORAL 07/14/2015 11:33 Prescription Detail 200 MILLIGRAMS ORAL TWICE A DAY Remeron 15MG Oral Tablet [id number] 15 MILLIGRAMS AT BEDTIME ORAL 07/14/2015 11:33 Prescription Detail 15 MILLIGRAMS ORAL AT BEDTIME Requip 1MG Oral Tablet [id number] 1 MILLIGRAMS AT BEDTIME ORAL 07/14/2015 11:33 Prescription Detail 1 MILLIGRAMS ORAL AT BEDTIME Xanax 1MG Oral Tablet [id number] 1 MILLIGRAMS THREE TIMES DAILY ORAL 07/14/2015 11:33 Prescription Detail 1 MILLIGRAMS ORAL THREE TIMES DAILY Medications Administered During Visit Unknown or Not Available. Encounters Encounter Diagnosis Diagnosis Code Start Date Migraine, unspecified, intractable, without status migrainosus [id number] 01/20/2016 Social History Smoking Status Code Start Date End Date Never smoker [id number] Patient Decision Aids Unknown or Not Available. Discharge Instructions You were admitted to [facility] on 01/20/2016 10:16 with a principal diagnosis of Migraine, unsp, intractable, without status migrainosus You were discharged from [facility] on 01/20/2016 10:16 Should you have any [...]
--- NOTE | 2017-02-11 11:12 | ERPDOC ---
Departure Disposition Decision Date: Feb 11, 2017 Disposition Decision Time: 13:21 Disposition: 01 DISCHARGED HOME, SELF-CARE Impression Impression Impression: Primary Impression: Left lower quadrant abdominal pain of unknown etiology Severity: Moderate Condition: Stable Seen By: Physician only Referrals: NINO CAO (Family) Patient Instructions: Abdominal Pain (ED) Problems/Meds/Labs Reviewed?: Yes Medications reviewed and manag: Yes Follow up care ordered?: Yes Mental Status: Alert, Oriented Scripts Hyoscyamine Sulfate (Levsin) 0.125 Mg Tablet 1 TAB PO Q4H Y for PAIN &/OR SPASM, #15 TAB Prov: ABRAHAM BERGER MD 02/11/17 HPI - Abdominal Pain General Chief Complaint: Abdominal Pain Stated Complaint: ABD PAIN, CRAMPING,BLEEDING, Time Seen by Provider: 11:12 HPI - Abdominal Pain Allergies: Coded Allergies: Erythromycin Lactobionate (Verified Allergy, Unknown, 08/31/12) Past History Past Medical History Metabolic: hypertension Cardiac: angina Female: kidney stones Neurological: migraines Surgical History Cardiac: cardiac cath Reproductive/: other, tubal ligation Physical Exam General Vitals and Pain First Documented Vital Signs Date Time Temp Pulse Resp B/P Pulse Ox O2 Delivery O2 Flow Rate FiO2 02/11/17 11:16 98.3 110 20 126/64 98 Room Air Weight: Kilograms: Height (feet): Height (inches): 63.00 Triage Pain Scale: Progress Results/Orders Orders Procedure Category Date Status Time Iv Lock (Ed Only) EDM 02/11/17 Transmitted 11:25 Nothing By Mouth (Ed EDM 02/11/17 Transmitted Only) 11:25 Cbc W/Auto LAB 02/11/17 Complete Diff-Reflex Manual 11:25 Cmp - Comprehensive LAB 02/11/17 Complete Metabolic 11:25 Lipase LAB 02/11/17 Complete 11:25 Normal Saline (Normal PHA 02/11/17 Complete Saline Iv) 11:30 Morphine Sulfate PHA 02/11/17 Complete (Morphine) 11:30 Ondansetron Inj PHA 02/11/17 Complete (Zofran) 11:30 Ct Abd/Pelvis CT 02/11/17 Resulted W/Contrast Only 12:14 Iohexol (Omnipaque) PHA 02/11/17 Complete 12:27 Normal Saline (Ns) PHA 02/11/17 Complete 12:27 Saline Flush (Iv PHA 02/11/17 Complete Flush) 12:27 UA, LAB 02/11/17 Complete Dip&Micro(Complete) & 12:55 Hyoscyamine (Levsin) PHA 02/11/17 Complete 13:30 Lab Results Laboratory Tests Test 02/11/17 11:55 02/11/17 12:55 White Blood Count 11.3T/MM3 Red Blood Count 3.67M/MM3 Hemoglobin 10.8GM/DL Hematocrit 33.4% Mean Corpuscular Volume 91.0UM3 Mean Corpuscular Hemoglobin 29.4UUG Mean Corpuscular Hemoglobin Concent 32.3GM/DL RDW Standard Deviation 45.9FL Platelet Count 208T/MM3 Mean Platelet Volume 11.4UM3 Immature Granulocyte % (Auto) 0.4% Neutrophils (%) (Auto) 79.1% Lymphocytes (%) (Auto) 12.7% Monocytes (%) (Auto) 4.8% Eosinophils (%) (Auto) 2.7% Basophils (%) (Auto) 0.3% Absolute Immature Granulocyte (auto 0.04T/MM3 Absolute Neutrophils (auto) 8.9T/MM3 Absolute Lymphocytes (auto) 1.4T/MM3 Absolute Monocytes (auto) 0.5T/MM3 Absolute Eosinophils (auto) 0.3T/MM3 Absolute Basophils (auto) 0.0T/MM3 Turbidity < 20 Sodium Level 143MEQ/L Potassium Level 3.7MEQ/L Chloride Level 106MEQ/L Carbon Dioxide Level 25MEQ/L Anion Gap 12MEQ/L Blood Urea Nitrogen 8.0MG/DL Creatinine 0.6MG/DL Glomerular Filtration Rate Calc 108 BUN/Creatinine Ratio 13RATIO Glucose Level 145MG/DL Calculated Osmolality 276MOSM/KG Calcium Level 9.0MG/DL Total Bilirubin 0.50MG/DL Icterus Index < 2 Aspartate Amino Transf (AST/SGOT) 40U/L Alanine Aminotransferase (ALT/SGPT) 53U/L Alkaline Phosphatase 138U/L Total Protein 6.9G/DL Albumin 3.7G/DL Globulin 3.2G/DL Albumin/Globulin Ratio 1.2RATIO Lipase 51U/L Chemistry Specimen Hemolysis 20 Urine Collection Type Voided-not cc-midstr Urine Color Yellow Urine Turbidity Clear Urine pH 5.5 Urine Specific [place] 1.020 Urine Protein Negative Urine Glucose (UA) Negative Urine Ketones Negative Urine Blood 2+ Urine Nitrite Negative Urine Bilirubin Negative Urine Urobilinogen 0.2EU/DL Urine Leukocyte Esterase Negative Urine RBC 1-3/HPF Urine WBC None seen/HPF Urine Squamous Epithelial Cells 10-20 Urine Bacteria Trace Urine Culture Indicated Cult not indicated Medications Current ED Medications Sodium Chloride (Normal Saline IV) 1,000 ml @ 999 mls/hr Q1H1M ONCE IV Last administered on 02/11/17 11:53; Start 02/11/17 at 11:30; Stop 02/11/17 at 12:30 ; Status DC Morphine Sulfate (Morphine) 4 mg O ONCE IV Last administered on 02/11/17 11: 54; Start 02/11/17 at 11:30; Stop 02/11/17 at 11:31; Status DC Ondansetron HCl (Zofran) 4 mg O ONCE IV Last administered on 02/11/17 11:53; Start 02/11/17 at 11:30; Stop 02/11/17 at 11:31; Status DC Iohexol 1 bottle 1 bottle STK-MED ONCE .ROUTE ; Start 02/11/17 at 12:27; Stop at 12:28; Status DC Sodium Chloride (NS) 100 ml @ As Directed STK-MED ONCE .ROUTE ; Start 02/11/17 at 12:27; Stop 02/11/17 at 12:28; Status DC Sodium Chloride (Iv Flush) 10 ml STK-MED ONCE .ROUTE ; Start 02/11/17 at 12:27; Stop 02/11/17 at 12:28; Status DC Hyoscyamine (Levsin) 0.25 mg O ONCE IV ; Start 02/11/17 at 13:30; Stop at 13:31; Status DC ABRAHAM BERGER MD Feb 11, 2017 11:12
[2017-02-11] MEDS ORDERED: CLON1TAB PO (11:16)
[2017-02-11] MEDS ORDERED: LISI10TA7 PO (11:16)
[2017-02-11] MEDS ORDERED: AMIT100T2 PO (11:16)
[2017-02-11] MEDS ORDERED: BUSP15TA3 PO (11:16)
[2017-02-11] MEDS ORDERED: IBUP-1724 PO (11:17)
[2017-02-11] MEDS ORDERED: ACET-62 PO (11:17)
[2017-02-11] MEDS ORDERED: QUET300T2 PO (11:17)
--- OUTSIDE RECORDS SUMMARY | 2017-02-11 11:25 | XMS REPORT | Continuity of Care Document ---
Author Author [facility] Address Unknown Phone Unavailable Allergies Medications Problems Procedures Results Encounters ACCT No. Visit Date/Time Discharge Status Pt. Type Provider Facility Loc./Unit Complaint [id number] 01/28/2014 07:25:00 2013 23:59:59 C[facility] Outpatient [id number] 09/25/2013 11:05:00 2012 23:59:59 CLS Outpatient
[2017-02-11] MEDS ORDERED: NORMAL SALINE 1,000 ML IV ONE (11:30)
[2017-02-11] MEDS ORDERED: MORPHINE SULFATE 4 MG SYRINGE IV ONE (11:30)
[2017-02-11] MEDS ORDERED: ONDANSETRON 4mg/2ml INJECTION IV ONE (11:30)
[2017-02-11 12:02] LABS: BASOPHILS % (AUTO) 0.3 % (0-2); EOSINOPHILS # (AUTO) 0.3 T/MM3 (0-0.5); EOSINOPHILS % (AUTO) 2.7 % (0-4); HCT - HEMATOCRIT 33.4 % (36-46); HGB - HEMOGLOBIN 10.8 GM/DL (12-16); IMMATURE GRANULOCYTE # (AUTO) 0.04 T/MM3 (0.00-0.03); IMMATURE GRANULOCYTE % (AUTO) 0.4 % (0.0-0.5); LYMPHOCYTES # (AUTO) 1.4 T/MM3 (1-4.8); LYMPHOCYTES % (AUTO) 12.7 % (23-45); MEAN CORPUSCULAR HGB 29.4 UUG (26-34); MEAN CORPUSCULAR HGB CONC(MCHC 32.3 GM/DL (31-37); MEAN PLATELET VOLUME 11.4 UM3 (9.4-12.4); MONOCYTES # (AUTO) 0.5 T/MM3 (0-0.8); MONOCYTES % (AUTO) 4.8 % (0-9.0); NEUTROPHILS #(AUTO)-ABSOLUTE 8.9 T/MM3 (1.8-7.7); NEUTROPHILS % (AUTO) 79.1 % (33-66); RED BLOOD COUNT 3.67 M/MM3 (4.00-5.20); WBC - WHITE BLOOD COUNT 11.3 T/MM3 (4.5-11.0)
[2017-02-11 12:12] LABS: ALBUMIN 3.7 G/DL (3.5-5.0); ALBUMIN/GLOBULIN RATIO 1.2 RATIO (1.1-2.2); ALKALINE PHOSPHATASE 138 U/L (38-126); ALT (SGPT) 53 U/L (9-52); ANION GAP 12 MEQ/L (5-15); AST (SGOT) 40 U/L (14-36); BUN/CREATININE RATIO 13 RATIO (6-26); CHLORIDE 106 MEQ/L (98-107); CO2 - CARBON DIOXIDE 25 MEQ/L (22-30); CREATININE 0.6 MG/DL (0.7-1.2); GLOMERULAR FILTRATION RATE 108; GLUCOSE 145 MG/DL (65-110); LIPASE 51 U/L (23-300); POTASSIUM 3.7 MEQ/L (3.6-5); SODIUM 143 MEQ/L (134-144); TOTAL PROTEIN 6.9 G/DL (6.3-8.2)
[2017-02-11] MEDS ORDERED: NORMAL SALINE 100 ML ONE (12:27)
[2017-02-11] MEDS ORDERED: SALINE FLUSH 10ml SYRINGE ONE (12:27)
[2017-02-11] MEDS ORDERED: IOHEXOL 300 MG/ML 100ml INJECTION ONE (12:27)
[2017-02-11 13:03] LABS: BLOOD, URINE 2+ (NEGATIVE); COLOR,URINE YELLOW (YELLOW); LEUKOCYTE ESTERASE ,URINE NEGATIVE (NEGATIVE); NITRITE,URINE NEGATIVE (NEGATIVE); UROBILINOGEN,URINE 0.2 EU/DL (NORMAL)
--- NOTE | 2017-02-11 13:07 | DI ---
Indication: ITS.REASON: severe left lower quadrant abdominal pain with rebound PROCEDURE: CT ABD/PELVIS W/CONTRAST ONLY: Encounter: Initial Comparison: None Technique: Axial CT images were performed through the abdomen and pelvis after the administration of intravenous contrast. Coronal and sagittal two-dimensional reformats. Automated Exposure Control and Iterative Reconstruction dose reducing techniques were utilized. Contrast: Omnipaque 300 100 mL Findings: Subpleural 4 mm right lower lobe nodule on image #6, which does not require further follow-up. Mild atelectasis in both lung bases. Granulomatous disease in the liver and spleen. No enhancing liver mass or bile duct dilatation. The gallbladder is surgically absent. The spleen, pancreas, right adrenal gland and kidneys are within normal limits. Minimal adenomatous hyperplasia of the left adrenal gland. No abdominal or pelvic lymphadenopathy. Scattered small retroperitoneal nodes. The bladder is normal. Uterus and ovaries are unremarkable. Tubal ligation clips. No free fluid. Moderate stool in the colon. No evidence of diverticulosis or acute diverticulitis. The appendix is normal. No evidence of a bowel obstruction. Bone windows are unremarkable. Impression: No acute disease process seen in the abdomen or pelvis. .
[2017-02-11 13:15] LABS: BACTERIA,URINE TRACE (NEGATIVE); WBC,URINE NONE SEEN /HPF (0-5)
[2017-02-11] MEDS ORDERED: HYOS0.122 PO (13:23)
[2017-02-11] MEDS ORDERED: HYOSCYAMINE 0.5 MG/ML INJECTION IV ONE (13:30)
[2017-02-11 14:00] VITALS: BP 116/59; PULSE 89; RESP 14; TEMP 98.3; O2SAT 94
== END 2017-02-11 14:00 | disposition home or self-care (01) ==
LOC: ED 10:53
DX: R10.32 Left lower quadrant pain (principal); K92.1 Melena; R11.0 Nausea
CPT/HCPCS: 36000; 80053; 81001; 83690; 85025

== ENCOUNTER 2018-03-30 12:35 | Inpatient (IN) ==
[2018-03-30 14:07] VITALS: BMI 36.5
[2018-03-30] MEDS ORDERED: MORPHINE SULFATE 2mg INJECTION IVP PRN (14:58)
--- NOTE | 2018-03-30 15:10 | History & Physical Report ---
History of Present Illness Date: 03/30/18 HPI: Pt comes in today d/t multiple ED visits in [place] for HTN. Pt reports she has been in ED 6 of the last 7 days d/t high BPs. Pt also has headaches/migraines that she has had chronically but have been getting worse in the last couple of weeks. Pt also has pain in both of her hands that has been there chronically but is much worse in the last couple of weeks. Pt has swelling in arms and legs that is also worse in last couple of weeks. Pt has hx of HTN and reports she is currently on Metoprolol and cozaar. Pt was previously been on lisinopril (d/c a couple of weeks ago for cough and switched to cozaar) and clonidine (stopped 3 months ago d/t hair loss, only on it for a couple of months). Pt reports compliance with medications and reports BP has been out of control in the last couple of weeks where she has had high readings mostly at night but also sometimes during the day. Previously it was borderline and somewhat under control. Denies any cp, sob , n/v/d, f/c. Denies any numbness or weakness. Pt is alert and oriented. Pt has had a couple of bouts of pna's in the last few months and has completed different courses of antibiotics. Pt reports she has been told multiple times that she has low potassium. Review of Systems Review of systems: 10 point ros negative other than what is noted above. Past Medical History Medical History Updates: Anxiety, depression, hypertension Family History: Hx of potassium problems Family History: As Above - Social History Smoking status: Never smoker Substance use type: does not use Alcohol intake frequency: does not drink Medications Home Medications Medication Instructions Recorded Confirmed Type clonazePAM [Klonopin] 1 mg PO BID PRN #0 02/11/17 03/30/18 History Acetaminophen [Acetaminophen Extra 1,000 mg PO Q8HR PRN 03/26/18 03/30/18 History Strength] Escitalopram Oxalate [Lexapro] 20 mg PO DAILY 03/26/18 03/30/18 History Ibuprofen 800 mg PO Q8HR PRN 03/26/18 03/30/18 History Losartan [Cozaar] 25 mg PO DAILY 03/26/18 03/30/18 History Metformin HCl [Glucophage Xr] 500 mg PO DAILY 03/26/18 03/26/18 History Methocarbamol [Robaxin] 500 mg PO QID PRN 03/26/18 03/30/18 History Metoprolol Tartrate [Lopressor] 50 mg PO BIDWM #60 tab 03/26/18 03/30/18 Rx Pantoprazole Tab [Protonix Tab] 1 tab PO ACB 03/26/18 03/30/18 History Buspirone [Buspar] 15 mg PO [id number] 03/30/18 03/30/18 History Buspirone [Buspar] 30 mg PO HS 03/30/18 03/30/18 History Mirtazapine [Remeron] 15 mg PO HS 03/30/18 03/30/18 History Oxycodone/Acetaminophen 5/325 1 - 2 tab PO QIDPRN PRN 03/30/18 03/30/18 History [Percocet 5/325] Allergies Allergy/AdvReac Type Severity Reaction Status Date / Time Erythromycin Lactobionate Allergy Unknown Uncoded 08/31/12 12:23 Exam Vital Signs: Pulse Rate 90 03/30/18 13:48 Height/Weight/BMI: Height 5 ft 3 in Weight 93.5 kg Body Mass Index 36.5 - Constitutional Present: mild distress - Routine HEENT Exam Head: Present: normocephalic, atraumatic Eye: Present: EOMI ENT: Present: mucous membranes moist - Routine Neck Exam Present: supple - Routine Respiratory Exam Present: CTA bilaterally. Absent: rales, wheezes - Routine Cardiovascular Exam Present: RRR, no murmur - Routine Abdominal Exam Present: soft, non distended, non tender - Routine Extremities Exam Present: edema. Absent: cyanosis, clubbing - Routine Skin Exam Present: intact, dry. Absent: erythema - Routine Neurological Exam Present: alert, oriented X3 - Routine Psychiatric Exam Present: normal affect, normal thought process Results - Labs CBC & Chem 7: 03/30/18 15:20 03/30/18 15:20 Assessment and Plan Assessment and Plan: HTN -Primary Aldosteronism vs. Cushings vs. andrea syndrome vs. poorly controlled HTN -PAC/PRA ratio, Urine 24hr K, late-night salivary cortisol/serum cortisol, TSH -Will cont. home meds and adjust dosage as appropriate Hypokalemia -Severe HTN + Hypokalemia-->Work up per above -Replace Depression/Anxiety -Cont. home Garrison Garcia Buspiarsenio Ppx -SCDs - Physician Narrative Narrative: Date: 03/30/18 Time: 1502 Hospital Course Summary Disclaimer: The visit summary below is not to be considered part of the above Progress Note.
[2018-03-30] MEDS ORDERED: HYDRALAZINE 20 MG/ML INJECTION IVP PRN (15:57)
[2018-03-30] MEDS: MORPHINE SULFATE 4mg INJECTION IVP PRN (16:10)
[2018-03-30] MEDS ORDERED: ClonazePAM 1 MG TABLET PO PRN (18:51)
[2018-03-30] MEDS: KETOROLAC 10 MG TABLET PO PRN (20:30)
[2018-03-30] MEDS: BUSPIRONE 15 MG TABLET PO SCH (23:17)
[2018-03-31] MEDS ORDERED: SALINE 0.65% NASAL SPRAY 44 ML BOTTLE EA NOSTRIL PRN (00:55)
[2018-03-31] MEDS: Oxycodone/Acetaminophen 5/325 1 TAB PO PRN ×5 (01:10→23:23)
[2018-03-31] MEDS: MORPHINE SULFATE 4mg INJECTION IVP PRN ×6 (01:33→21:24)
[2018-03-31] MEDS: KETOROLAC 10 MG TABLET PO PRN ×3 (03:07→17:29)
[2018-03-31] MEDS: BUSPIRONE 15 MG TABLET PO SCH ×3 (06:10→21:23)
[2018-03-31] MEDS: LOSARTAN 50 MG TABLET PO SCH (08:23)
[2018-03-31] MEDS: ESCITALOPRAM 20 MG TABLET PO SCH (08:24)
--- NOTE | 2018-03-31 11:23 | Progress Note ---
- Date 03/31/18 Subjective: Pt reports pain in the hands is better controlled but still there along with the swelling. Denies any f/c, cp or sob. Pt is tolerating PO intake well. Pt is frustrated that her BPs are controlled in the hospital somehow while at home they are not. Denies any n/v but does report a headache. Pt believes she needs more pain medications. Pt also would like her remeron started back up. Objective Vital signs: Temperature 97.8 F 03/31/18 07:51 Pulse Rate 73 03/31/18 10:01 Respiratory Rate 18 03/31/18 10:00 Blood Pressure 187/87 H 03/31/18 10:01 Pulse Oximetry 99 03/31/18 10:01 Height/Weight/BMI: Height 5 ft 3 in Weight 93.5 kg Body Mass Index 36.5 - Constitutional Present: no acute distress - Routine HEENT Exam Head: Present: normocephalic, atraumatic Eye: Present: EOMI - Routine Respiratory Exam Present: CTA bilaterally. Absent: rhonchi, wheezes - Routine Cardiovascular Exam Present: RRR, no murmur - Routine Abdominal Exam Present: soft, non distended, non tender - Routine Extremities Exam Present: edema. Absent: cyanosis, clubbing - Routine Skin Exam Present: intact, dry. Absent: erythema - Routine Neurological Exam Present: alert, oriented X3 - Routine Psychiatric Exam Present: normal affect Results - Labs CBC & Chem 7: 03/31/18 08:22 03/31/18 08:22 Assessment and Plan Assessment and Plan: HTN -Primary Aldosteronism vs. Cushings vs. andrea syndrome vs. poorly controlled HTN -PAC/PRA ratio, Urine 24hr K, late-night salivary cortisol/serum cortisol -TSH wnls -Will cont. home meds and adjust dosage as appropriate Extremity Edema -Unclear etiology -UA without protein, BNP pending, Liver sono pending -BRIONNA pending Hypokalemia -Reported hx of chronic hypokalemia -Severe HTN + Hypokalemia-->Work up per above -Replace Depression/Anxiety -Cont. home Lexapro, Klonopin, Buspirone, Remeron Ppx -SCDs - Physician Narrative Narrative: Date: 03/31/18 Time: 1033 Hospital Course Summary Disclaimer: The visit summary below is not to be considered part of the above Progress Note. Hospital Course: 03/31/2018 Pt about the same, not clear etiology of what is going on, BPs are mostly controlled but starting to get higher this am, will cont. to monitor and await work up. Pt continues to be somewhat fixated on pain treatment and medications.
[2018-03-31] MEDS ORDERED: ClonazePAM 1 MG TABLET PO PRN (11:43)
[2018-03-31] MEDS: ClonazePAM 1 MG TABLET PO PRN ×2 (13:12→17:28)
[2018-03-31] MEDS: SALINE FLUSH 10ml SYRINGE IV PRN (15:40)
[2018-03-31] MEDS ORDERED: MIRTAZAPINE 30 MG TABLET PO SCH (21:00)
[2018-03-31] MEDS: ACETAMINOPHEN 325 MG TABLET PO PRN (23:22)
[2018-04-01] MEDS: MORPHINE SULFATE 4mg INJECTION IVP PRN ×4 (01:46→18:00)
[2018-04-01] MEDS: KETOROLAC 10 MG TABLET PO PRN ×4 (03:15→23:13)
[2018-04-01] MEDS: ClonazePAM 1 MG TABLET PO PRN ×2 (04:20→10:46)
[2018-04-01] MEDS: BUSPIRONE 15 MG TABLET PO SCH ×3 (06:38→20:25)
[2018-04-01] MEDS: Oxycodone/Acetaminophen 5/325 1 TAB PO PRN ×3 (06:42→20:23)
[2018-04-01] MEDS: ACETAMINOPHEN 325 MG TABLET PO PRN (06:42)
[2018-04-01] MEDS: SALINE FLUSH 10ml SYRINGE IV PRN ×3 (08:32→18:01)
[2018-04-01] MEDS: CHLORTHALIDONE 25 MG TABLET PO SCH (09:24)
[2018-04-01] MEDS: LOSARTAN 50 MG TABLET PO SCH (09:24)
[2018-04-01] MEDS: ESCITALOPRAM 20 MG TABLET PO SCH (09:24)
--- NOTE | 2018-04-01 10:23 | Ultrasound Report ---
Indication: transaminitis PROCEDURE: US liver: Encounter: Initial Comparison: None Technique: Grayscale and color Doppler sonographic imaging of the right upper quadrant of the abdomen was performed. Findings: Hepatic parenchyma is sonographically dense without evidence for focal mass. The gallbladder is surgical absent. Both the intra and extrahepatic biliary system are of normal caliber with the common duct measuring 2 mm in dimension. Visualized portions of the head and body of the pancreas are unremarkable. The right kidney is present without collecting system dilatation. The right kidney measures 14.4 cm in length. Possible duplicated collecting system. Impression: Hepatic steatosis. .
--- NOTE | 2018-04-01 10:35 | Ultrasound Report ---
Indication: TRANSAMINITIS PROCEDURE: US abd/pelvic doppler complete: Encounter: Initial Comparison: CT abdomen and pelvis dated February 11, 2017 Technique: Grayscale and color Doppler duplex imaging of the hepatic artery and veins was performed. Portal vein is also evaluated. Findings/ Impression: Normal flow direction and waveforms seen within the left, middle and right hepatic veins. Increased flow velocity with normal flow direction in the main portal vein at 36 cm/s. Normal appearing waveforms in the hepatic artery with a peak systolic velocity of 105 cm/s, end diastolic velocity of 22.6 cm/s and resistive index of 0.78. .
--- NOTE | 2018-04-01 15:07 | Progress Note ---
- Date 04/01/18 Subjective: Pt reports continued hand pain bilaterally, reports she wants dilaudid. Denies any cp, sob, n/v/d, f/c. Pt is also having a hard time sleeping and wants a 10mg ambien, reports she has had it before and she does okay with it. Pt wants us to also increase her klonipin and increase her pain medications. Pt is frustrated that her BP is not that high in the hospital but when she's at home it is much higher per pt. Objective Vital signs: Temperature 97.0 F 04/01/18 14:00 Pulse Rate 72 04/01/18 14:00 Respiratory Rate 18 04/01/18 14:00 Blood Pressure 162/98 H 04/01/18 14:00 Pulse Oximetry 96 04/01/18 14:00 Height/Weight/BMI: Height 5 ft 3 in Weight 92 kg Body Mass Index 36.5 - Constitutional Present: no acute distress - Routine HEENT Exam Head: Present: normocephalic, atraumatic Eye: Present: EOMI - Routine Respiratory Exam Present: CTA bilaterally. Absent: wheezes, crackles - Routine Cardiovascular Exam Present: RRR, no murmur - Routine Abdominal Exam Present: soft, non distended, non tender - Routine Extremities Exam Present: no edema. Absent: cyanosis, clubbing - Routine Musculoskeletal Exam Musculoskeletal: Present: no clubbing or cyanosis - Routine Skin Exam Present: intact, dry. Absent: erythema - Routine Neurological Exam Present: alert, oriented X3 Results - Labs CBC & Chem 7: 03/31/18 08:22 04/01/18 05:33 Assessment and Plan Assessment and Plan: HTN -Primary Aldosteronism vs. Cushings vs. andrea syndrome vs. poorly controlled HTN -PAC/PRA ratio, Urine 24hr K, late-night salivary cortisol/serum cortisol -TSH wnls -Will cont. home meds and adjust dosage as appropriate, started chlorthalidone Extremity Edema -Unclear etiology -UA without protein, BNP pending, Liver sono pending -BRIONNA pending Hypokalemia -Reported hx of chronic hypokalemia -Severe HTN + Hypokalemia-->Work up per above -Replace Depression/Anxiety -Cont. home Lexapro, Klonopin, Buspirone, Remeron Pain control -Chronic hand pain bilateral -Some concern for pain seeking as she is continuously trying to bargain for more pain meds -Will titrate down Ppx -SCDs - Physician Narrative Narrative: Date: 04/01/18 Time: 1504 Hospital Course Summary Disclaimer: The visit summary below is not to be considered part of the above Progress Note. Hospital Course: 03/31/2018 Pt about the same, not clear etiology of what is going on, BPs are mostly controlled but starting to get higher this am, will cont. to monitor and await work up. Pt continues to be somewhat fixated on pain treatment and medications.
[2018-04-01] MEDS ORDERED: ZOLPIDEM 10 MG TABLET PO SCH (20:00)
[2018-04-01] MEDS ORDERED: MIRTAZAPINE 15 MG TABLET PO SCH (21:00)
[2018-04-02] MEDS: Oxycodone/Acetaminophen 5/325 1 TAB PO PRN ×3 (03:43→14:05)
[2018-04-02] MEDS: BUSPIRONE 15 MG TABLET PO SCH ×2 (06:48→14:02)
[2018-04-02 07:42] VITALS: RESP 18
[2018-04-02] MEDS: LOSARTAN 50 MG TABLET PO SCH (08:02)
[2018-04-02] MEDS: CHLORTHALIDONE 25 MG TABLET PO SCH (08:03)
[2018-04-02] MEDS: ESCITALOPRAM 20 MG TABLET PO SCH (08:03)
[2018-04-02] MEDS: ClonazePAM 1 MG TABLET PO PRN (08:16)
[2018-04-02] MEDS: KETOROLAC 10 MG TABLET PO PRN (11:02)
[2018-04-02 11:38] VITALS: BP 142/85; PULSE 69; TEMP 96.2; O2SAT 97
--- NOTE | 2018-04-02 15:54 | Discharge Summary ---
Discharge Information Date of admission: 03/31/18 11:14 Anticipated date of discharge: 04/02/18 Attending Physician: Kelli Rea MD Primary care physician: Maranda Jordan APRN - Laboratory Labs: 04/02/18 04:20 04/02/18 04:20 History of Present Illness HPI: Pt comes in today d/t multiple ED visits in [place] for HTN. Pt reports she has been in ED 6 of the last 7 days d/t high BPs. Pt also has headaches/migraines that she has had chronically but have been getting worse in the last couple of weeks. Pt also has pain in both of her hands that has been there chronically but is much worse in the last couple of weeks. Pt has swelling in arms and legs that is also worse in last couple of weeks. Pt has hx of HTN and reports she is currently on Metoprolol and cozaar. Pt was previously been on lisinopril (d/c a couple of weeks ago for cough and switched to cozaar) and clonidine (stopped 3 months ago d/t hair loss, only on it for a couple of months). Pt reports compliance with medications and reports BP has been out of control in the last couple of weeks where she has had high readings mostly at night but also sometimes during the day. Previously it was borderline and somewhat under control. Denies any cp, sob , n/v/d, f/c. Denies any numbness or weakness. Pt is alert and oriented. Pt has had a couple of bouts of pna's in the last few months and has completed different courses of antibiotics. Pt reports she has been told multiple times that she has low potassium. Hospital Course This is a general summary of the patient's hospital course. For more details refer to the complete medical record. Pt was admitted d/t multiple ED visits for HTN from an outside facility. Pt reported having BPs in the 200s systolic but during hospital pt mostly stayed in systolics 150s and 140s and even normal other times. Pt also reported chronic pain and swelling of her arms which had been going on for multiple years. Work up was done for cushings, primary aldosteronism, andrea syndrome. Pending labs are below otherwise work up was negative. TSH was normal, BRIONNA was negative. Pt constantly asked for IV pain medications during her hospital stay and there was some concern for pain seeking behavior but it was unclear. Pt was started on chlorthalidone while in hospital and her BP was mostly stable. Pt wanted to go home and pt was discharged with recommendation to follow up with pcp office for possible neurology referral for her hand pain as well as labs to check electrolytes d/t new BP medications. Pt agreed to follow up later this week. Pt requested 1 month supply of pain medications on discharge and it was discussed with her that that is not appropriate and that she needs to follow up with her pcp office to get a better pain management plan. Pt reported hx of hypokalemia but during hospital stay K was wnls. Pt also had a very mild transaminitis in the hospital that should be followed up as outpatient. Recommend following up with renal panel in 3-5 days and follow up on the following pending studies: Urine studies, i.e. Ur K and Ur Cr Renin/Aldosterone ratio Hospital course: 03/31/2018 Pt about the same, not clear etiology of what is going on, BPs are mostly controlled but starting to get higher this am, will cont. to monitor and await work up. Pt continues to be somewhat fixated on pain treatment and medications. Discharge Plan - Med Rec/Dispo Prescriptions: New Chlorthalidone [Hygroton] 12.5 mg PO WB #30 tab Continue clonazePAM [Klonopin] 1 mg PO BID PRN #0 PRN Reason: ANXIETY Escitalopram Oxalate [Lexapro] 20 mg PO DAILY Methocarbamol [Robaxin] 500 mg PO QID PRN PRN Reason: Muscle Spasm Metformin HCl [Glucophage Xr] 500 mg PO DAILY Pantoprazole Tab [Protonix Tab] 1 tab PO ACB Losartan [Cozaar] 25 mg PO DAILY Oxycodone/Acetaminophen 5/325 [Percocet 5/325] 1 - 2 tab PO QIDPRN PRN PRN Reason: Pain Metoprolol Tartrate [Lopressor] 50 mg PO BIDWM #60 tab Buspirone [Buspar] 15 mg PO [id number] Buspirone [Buspar] 30 mg PO HS Mirtazapine [Remeron] 15 mg PO HS No Action Acetaminophen [Acetaminophen Extra Strength] 1,000 mg PO Q8HR PRN PRN Reason: Pain Ibuprofen 800 mg PO Q8HR PRN PRN Reason: Pain - Disposition 01 Discharged Home, Self-Care - Dismissal Complete Discharge Instructions are:: Complete
== END 2018-04-02 15:23 | disposition home or self-care (01) | DRG 305 ==
LOC: CCU → MED 03-31 16:40
PROVIDERS: ADMIT Internal Medicine; ATTEND Internal Medicine